=== PATIENT | female | born 1985 | race Two or more races ===

== ENCOUNTER 2020-07-06 22:33 | Emergency (ER) | payer SELFPAY ==
[~2020-07-06] VITALS: Ht 162.6 cm; Wt 75.0 kg
--- NOTE | 2020-07-06 22:46 | PHYS DOC ---
Past Medical History Past Medical History: No Pertinent History Past Surgical History: Smoking Status: Never Smoker Alcohol Use: None General Adult EDM: Chief Complaint: ABDOMINAL PAIN IN HPI: HPI: Patient is a 35 year old G3, P2 female whose last menstrual period was 2 months ago presents with vaginal spotting with wiping that began this evening. Patient also describes 1 out of 10 lower abdominal discomfort that radiates to the back. Patient has also had some nausea vomiting when eating during the . Patient denies any fevers chills cough or other symptoms. Review of Systems: Review of Systems: Constitutional: Denies fever or chills. [] Eyes: Denies change in visual acuity. [] HENT: Denies nasal congestion or sore throat. [] Respiratory: Denies cough or shortness of breath. [] Cardiovascular: Denies chest pain or edema. [] GI: Complains of mild abdominal pain with some nausea and vomiting but no blood in her stool or diarrhea : Denies dysuria. [] Complains of mild vaginal bleeding Musculoskeletal: Denies back pain or joint pain. [] Integument: Denies rash. [] Neurologic: Denies headache, focal weakness or sensory changes. [] Endocrine: Denies polyuria or polydipsia. [] Lymphatic: Denies swollen glands. [] Psychiatric: Denies depression or anxiety. [] Heart Score: Risk Factors: Risk Factors: DM, Current or recent (<one month) smoker, HTN, HLP, family history of CAD, obesity. Risk Scores: Score 0 - 3: 2.5% MACE over next 6 weeks - Discharge Home Score 4 - 6: 20.3% MACE over next 6 weeks - Admit for Clinical Observation Score 7 - 10: 72.7% MACE over next 6 weeks - Early Invasive Strategies Physical Exam: PE: Constitutional: Well developed, well nourished, no acute distress, non-toxic appearance. [] HENT: Normocephalic, atraumatic, bilateral external ears normal, no trismus nose normal. [] Eyes: PERRLA, EOMI, conjunctiva normal, no discharge. [] Neck: Normal range of motion, no tenderness, supple, no stridor. [] Cardiovascular:Heart rate regular rhythm, peripheral pulse intact cap refill is brisk Lungs & Thorax: Bilateral breath sounds clear, no respiratory distress Abdomen: Mild tenderness left lower quadrant without guarding or rebound no masses no pulsatile masses Skin: Warm, dry, no erythema, no rash. [] Back: No tenderness, no CVA tenderness. [] Extremities: No tenderness, no cyanosis, no clubbing, ROM intact, no edema. [] Neurologic: Alert and oriented X 3, normal motor function, normal sensory function, no focal deficits noted. [] Psychologic: Affect normal, judgement normal, mood normal. [] Current Patient Data: Labs: Laboratory Tests Test 07/06/20 22:30 07/06/20 22:46 07/06/20 23:18 Urine Collection Type Unknown Urine Color Yellow Urine Clarity Clear Urine pH 5.5 Urine Specific [place] >=1.030 Urine Protein Negative mg/dL Urine Glucose (UA) Negative mg/dL Urine Ketones (Stick) Negative mg/dL Urine Blood Moderate Urine Nitrite Negative Urine Bilirubin Negative Urine Urobilinogen Dipstick 1.0 mg/dL Urine Leukocyte Esterase Negative Urine RBC Rare /HPF Urine WBC 1-4 /HPF Urine Squamous Epithelial Cells Many /LPF Urine Bacteria Many /HPF Urine Mucus Marked /LPF Bedside Urine HCG, Qualitative Hcg positive White Blood Count 10.0 x10^3/uL Red Blood Count 4.40 x10^6/uL Hemoglobin 13.0 g/dL Hematocrit 38.0 % Mean Corpuscular Volume 86 fL Mean Corpuscular Hemoglobin 30 pg Mean Corpuscular Hemoglobin Concent 34 g/dL Red Cell Distribution Width 12.8 % Platelet Count 211 x10^3/uL Neutrophils (%) (Auto) 63 % Lymphocytes (%) (Auto) 27 % Monocytes (%) (Auto) 7 % Eosinophils (%) (Auto) 3 % Basophils (%) (Auto) 1 % Neutrophils # (Auto) 6.3 x10^3/uL Lymphocytes # (Auto) 2.7 x10^3/uL Monocytes # (Auto) 0.7 x10^3/uL Eosinophils # (Auto) 0.3 x10^3/uL Basophils # (Auto) 0.1 x10^3/uL Maternal Serum HCG Beta Subunit 38912 mIU/mL Sodium Level 136 mmol/L Potassium Level 3.1 mmol/L Chloride Level 103 mmol/L Carbon Dioxide Level 26 mmol/L Anion Gap 7 Blood Urea Nitrogen 8 mg/dL Creatinine 0.8 mg/dL Estimated GFR (Cockcroft-Gault) 81.6 Glucose Level 112 mg/dL Calcium Level 9.0 mg/dL RH POSITIVE Vital Signs: Vital Signs Date Time Temp Pulse Resp B/P (MAP) Pulse Ox O2 Delivery O2 Flow Rate FiO2 07/06/20 22:45 98.5 68 16 145/81 (102) 96 Room Air 98.5 EKG: EKG: [] Radiology/Procedures: Radiology/Procedures: [][facility] [address] [place] [address] IMAGING REPORT Signed PATIENT: ETHAN DOWLING ACCOUNT: [id number] : 1985 LOCATION: ER AGE: 35 SEX: F EXAM STATUS: REG ER ORD. PHYSICIAN: SCARLET BILLY MD REASON: VAG BLEED, 2 MONTH PROCEDURE: OB TRANSVAG Transvaginal obstetric ultrasound less than 14 weeks HISTORY: Two-month female with vaginal bleeding. FINDINGS: Cervix long and closed, has a length on the saved images of 4 cm, no cervical funneling. Anteverted uterus measures 11.8 x 6.6 x 0.2 cm. There is a single living intrauterine fetus with crown-rump length of 2.58 cm estimating sonographic gestational age of 9 weeks 2 days and sonographic date of delivery February 06, 2021. This is advanced relative to the clinical gestational age of 5 weeks 2 days. Normal subjective volume of amniotic fluid. Yolk sac diameter 6 mm. No subchorionic hemorrhage. It is too early for anatomic evaluation. Early placental development appears to be anterior. heart rate 175 bpm. Maternal left ovary measures 2.7 x 1.3 x 1.6 cm. Maternal right ovary measures 3.9 x 1.8 x 1.4 cm. There is intact bilateral ovarian blood flow. No adnexal masses documented. No pelvic fluid. IMPRESSION: Single living intrauterine fetus with estimated sonographic gestational age of 9 weeks 2 days as described above. Electronically signed by: Caroline Ferrera MD (07/06/2020 11:49 PM) [facility] DICTATED and SIGNED BY: CAROLINE FERRERA MD DATE: 07/06/20 4466 Course & Med Decision Making: Course & Med Decision Making Pertinent Labs and Imaging studies reviewed. (See chart for details) [] 35-year-old female presents with vaginal spotting. Patient is approximately 2 months . Her work-up is reassuring. Rh is positive. Patient was given instructions on threatened miscarriage. Dragon Disclaimer: Dragon Disclaimer: This electronic medical record was generated, in whole or in part, using a voice recognition dictation system. Departure Departure Impression: Primary Impression: Threatened miscarriage Disposition: 01 HOME, SELF-CARE Condition: STABLE Referrals: OLIVIA MEREDITH MD 2-3 DAYS Patient Instructions: Threatened Miscarriage Additional Instructions: EMERGENCY DEPARTMENT GENERAL DISCHARGE INSTRUCTIONS THANK YOU for coming to [facility] Emergency Department (ED) today and trusting us with your care. We trust that you had a positive experience in our Emergency Department. If you wish to speak to the department Management you can contact the credit department manager at . YOUR FOLLOW UP INSTRUCTIONS ARE FOLLOWS: Do you have a private doctor? If you do not have a private doctor, please ask for a resource list of physicians or clinics that may be able to assist you with follow up care. The Emergency Physician has interpreted your x-rays. The X-ray specialist will also review them. If there is a change in the findings you will be notified in 48 hours when at all possible. A lab test or lab culture may have been done, your results will be reviewed and you will be notified if you need a change in treatment. ADDITIONAL INSTRUCTIONS AND INFORMATION Your care today has been supervised by a physician who is specially trained in emergency care. Many problems require more than one evaluation for a complete diagnosis and treatment. We recommend that you schedule your follow up appointment as recommended to ensure complete treatment of your illness or injury. If you are unable to obtain follow up care and continue to have a problem, or if your condition worsens we recommend that you return to the ED. We are not able to safely determine your condition over the phone nor are we able to give sound medical advice over the phone. For these safety reasons, if you call for medical advice we will ask you to come to the ED for further evaluation If you have any questions regarding these discharge instructions please call the ED at . SAFETY INFORMATION In the interest of safety, wellness, and injury prevention; we encourage you to wear your seatbelt, if you smoke; quit smoking, and we encourage your family to use protective helmet for bicycling and other sporting events that present an increased risk for head injury. IF YOUR SYMPTOMS WORSEN OR NEW SYMPTOMS DEVELOP, OR YOU HAVE CONCERNS ABOUT YOUR CONDITION; OR IF YOUR CONDITION WORSENS WHILE YOU ARE WAITING FOR YOUR FOLLOW UP APPOINTMENT; EITHER CONTACT YOUR PRIMARY CARE DOCTOR, THE PHYSICIAN WHOSE NAME AND NUMBER YOU WERE GIVEN, OR RETURN TO THE ED IMMEDIATELY. Scripts Nitrofurantoin Monohyd/M-Cryst (MACROBID 100 MG CAPSULE) 100 Mg Capsule 1 CAP PO BID for 7 Days, #14 CAP 0 Refills Prov: SCARLET BILLY MD 07/07/20 SCARLET BILLY MD Jul 06, 2020 22:46
[2020-07-06 22:56] LABS: BILIRUBIN,URINE NEGATIVE (NEG); CLARITY,URINE CLEAR; COLOR,URINE YELLOW; NITRITE,URINE NEGATIVE (NEG); PH,URINE 5.5 (<5.0-8.0); PROTEIN,URINE NEGATIVE (NEG-TRACE)
[2020-07-06 23:01] LABS: BACTERIA,URINE MANY /HPF (0-FEW)
[2020-07-06 23:04] LABS: RBC,URINE RARE /HPF (0-2)
[2020-07-06 23:26] LABS: BASO # 0.1 x10^3/uL (0.0-0.2); BASO % 1 % (0-3); EOS # 0.3 x10^3/uL (0.0-0.7); EOS % 3 % (0-3); LYMPH # 2.7 x10^3/uL (1.0-4.8); LYMPH % 27 % (24-48); MEAN CORPUSCULAR HEMOGLOBIN 30 pg (25-35); MEAN CORPUSCULAR HGB CONC 34 g/dL (31-37); MEAN CORPUSCULAR VOLUME 86 fL (79-100); MONO # 0.7 x10^3/uL (0.0-1.1); MONO % 7 % (0-9); NEUT # 6.3 x10^3/uL (1.8-7.7); NEUT % 63 % (31-73); PLATELET COUNT 211 x10^3/uL (140-400); RED CELL DISTRIBUTION WIDTH 12.8 % (11.5-14.5)
[2020-07-06 23:35] LABS: CREATININE 0.8 mg/dL (0.6-1.0); GFR 81.6; POTASSIUM 3.1 mmol/L (3.5-5.1)
--- NOTE | 2020-07-06 23:52 | RAD ---
Transvaginal obstetric ultrasound less than 14 weeks HISTORY: Two-month female with vaginal bleeding. FINDINGS: Cervix long and closed, has a length on the saved images of 4 cm, no cervical funneling. Anteverted uterus measures 11.8 x 6.6 x 0.2 cm. There is a single living intrauterine fetus with crown-rump length of 2.58 cm estimating sonographic gestational age of 9 weeks 2 days and sonographic date of delivery February 06, 2021. This is advanced relative to the clinical gestational age of 5 weeks 2 days. Normal subjective volume of amniotic fluid. Yolk sac diameter 6 mm. No subchorionic hemorrhage. It is too early for anatomic evaluation. Early placental development appears to be anterior. heart rate 175 bpm. Maternal left ovary measures 2.7 x 1.3 x 1.6 cm. Maternal right ovary measures 3.9 x 1.8 x 1.4 cm. There is intact bilateral ovarian blood flow. No adnexal masses documented. No pelvic fluid. IMPRESSION: Single living intrauterine fetus with estimated sonographic gestational age of 9 weeks 2 days as described above. Electronically signed by: Jovanni Ferrera MD (07/06/2020 11:49 PM) [facility]
[2020-07-07] MEDS ORDERED: NITR100C62 PO (00:09)
[2020-07-07 00:16] VITALS: BP 142/83
== END 2020-07-07 00:25 | disposition home or self-care (01) ==
LOC: ER 22:33
DX: O20.0 Threatened abortion (principal); R10.32 Left lower quadrant pain; Z98.890 Other specified postprocedural states; Z3A.09 9 weeks gestation of pregnancy
CPT/HCPCS: 36415; 76817; 80048; 81001; 81025; 84702; 85025; 86901; 87086; 99284